=== PATIENT | male | born 1975 | race Caucasian/White ===

== ENCOUNTER 2019-12-26 00:42 | Outpatient (CLI) | payer BC, SELFPAY ==
[2019-12-26 21:18] LABS: SARS-CoV-2 RNA PCR Negative
== END 2019-12-26 00:43 | disposition home or self-care (01) ==
LOC: ANHCOVIDDT 00:42
PROVIDERS: PCP Family Medicine; Visit Provider Internal Medicine Gastroenterology
DX: Z01.812 Encounter for preprocedural laboratory examination (principal); Z20.828 Contact with and (suspected) exposure to other viral communicable diseases
CPT/HCPCS: 87635; C9803; U0003

== ENCOUNTER 2019-12-30 02:07 | Day surgery (SDC) | payer BC, SELFPAY ==
[2019-12-24 15:52] VITALS: BMI 34.8
[2019-12-30 08:39] VITALS: BP 142/107; PULSE 102; RESP 16; TEMP 36.6; O2SAT 100; BMI 34.0
--- NOTE | 2019-12-30 08:44 | WPDANESEPPF ---
Anes - Initial Pre Proc Eval Procedure: Operation Date: 12/30/19 10:00 Proposed Procedures p Esophagogastroduodenoscopy - Reggie Tolentino MD Date/Time: 12/30/19 08:44 Surgeon: Reggie Tolentino MD Pre Op Diagnosis: GERD Patient Data Age: 44 Gender: M Height: 1.75 m Weight: 104.7 kg Last Vital Signs Temp 36.6 C 12/30/19 08:39 Pulse 102 H 12/30/19 08:39 Resp 16 12/30/19 08:39 BP 142/107 H 12/30/19 08:39 Pulse Ox 100 12/30/19 08:39 Allergies Allergy/AdvReac Type Severity Reaction Status Date / Time No Known Allergies Allergy Verified 12/30/19 08:38 Home Medications Medication Instructions Recorded Confirmed Type multivitamin 1 tablet PO DAILY 11/12/19 12/24/19 History teriflunomide 14 mg tablet 14 mg PO DAILY 11/12/19 12/24/19 History cholecalciferol (vitamin D3) 50 100 mcg PO DAILY cap 11/25/19 12/24/19 History mcg (2,000 unit) capsule duloxetine 60 mg capsule,delayed 60 mg PO BID cap 11/25/19 12/24/19 History release Adult Multi plus [place]-3 1 cap PO DAILY 12/24/19 12/24/19 History Patient hx anesthesia problems: none Family hx anesthesia problems: none PMFSH Past Medical History Medical History (Updated 12/30/19 @ 08:45 by Migue Ramirez MD) Depression with anxiety Dyslipidemia Multiple sclerosis Obesity Vitamin D deficiency Surgical History Surgical History H/O arthroscopy of left knee 2017 History of esophagogastroduodenoscopy (EGD) [facility] 2017 or 2018 Family History Family History Mother Breast cancer Father Parkinson's disease Other Carcinoma of stomach Social History Social History Smoking status: Never smoker Alcohol intake: never Substance use: never Substance use type: does not use Spiritual care concerns: No Anes - Eval Final PreProcedure Day of Procedure 12/30/19 08:44 Patient weight: obese Heart: regular rate and rhythm Lungs: clear to auscultation and normal air movement Airway: Mallampati scale class II Neurological: alert and oriented Last oral intake: >/= 8 hours ASA classification: III Emergent: no Anesthetic plan: proceed Anesthesia type and monitoring: general GIVS Informed Consent: The patient's anesthetic plan and its attendant risks and benefits were discussed with the patient/family/POA. Questions were solicited and answers provided to the satisfaction of the patient/family/POA.
[2019-12-30] MEDS: LACTATED RINGERS 1,000 ML 150 ML IV CONT (08:59)
--- NOTE | 2019-12-30 09:54 | PM.HPGS ---
History of Present Illness History of Present Illness Consent: Risks, benefits, and alternatives have been discussed and questions answered. Patient agrees to proceed with procedure. Chief complaint: GERD Narrative: Nahid Stringer is a 44 year old male h/o MS, here because clearing throat and mild chest discomfort, empiric treatment with antacids and ppi did not work. Review of Systems Constitutional: Constitutional: Denies headache(s) and Denies weakness Eyes: Eyes: Denies blurry vision ENT: Reports Normal hearing present, Denies headache(s) and Denies neck pain Cardiovascular: Cardiovascular: Denies chest pain and Denies dyspnea Respiratory: Respiratory: Denies dyspnea Gastrointestinal: Gastrointestinal: Reports no additional gastrointestinal complaints Genitourinary: Genitourinary: Denies dysuria Musculoskeletal: Musculoskeletal: Denies neck pain Integumentary/Breasts: Skin/Breast: Denies dry skin Neurologic: Reports Normal hearing present, Denies headache(s) and Denies weakness Psychiatric: Psychiatric: Denies anxiety Endocrine: Endocrine: Denies change in body appearance Hematologic/Lymphatic: Hematologic/Lymphatic: Denies easy bleeding Allergic/Immunologic: Allergic/Immunologic: Denies urticaria PMFSH Past Medical History Medical History (Updated 12/30/19 @ 09:55 by Reggie Tolentino MD) Chronic throat clearing Depression with anxiety Dyslipidemia Multiple sclerosis Obesity Vitamin D deficiency Surgical History Surgical History H/O arthroscopy of left knee 2017 History of esophagogastroduodenoscopy (EGD) [facility] 2017 or 2018 Family History Family History Mother Breast cancer Father Parkinson's disease Other Carcinoma of stomach Social History Social History Smoking status: Never smoker Alcohol intake: never Substance use: never Substance use type: does not use Spiritual care concerns: No Meds Home Medications and Allergies Home Medications Medication Instructions Recorded Confirmed Type multivitamin 1 tablet PO DAILY 11/12/19 12/24/19 History teriflunomide 14 mg tablet 14 mg PO DAILY 11/12/19 12/24/19 History cholecalciferol (vitamin D3) 50 100 mcg PO DAILY cap 11/25/19 12/24/19 History mcg (2,000 unit) capsule duloxetine 60 mg capsule,delayed 60 mg PO BID cap 11/25/19 12/24/19 History release Adult Multi plus [place]-3 1 cap PO DAILY 12/24/19 12/24/19 History Allergies Allergy/AdvReac Type Severity Reaction Status Date / Time No Known Allergies Allergy Verified 12/30/19 08:38 Vital Signs Vital Signs - 24 hr 12/30/19 08:39 Temperature 97.9 F Pulse Rate 102 H Respiratory Rate 16 Blood Pressure 142/107 H Pulse Oximetry 100 Exam Const: General: comfortable and no acute distress HENMT: General nose exam: Normal nares present Eyes: General: appearance normal, both eyes and all related structures Neck: Neck: no JVD Resp: Auscultation: clear to auscultation bilaterally Cardio: Rate: regular rate Rhythm: regular rhythm GI: Inspection: non-distended GI Palp: Yes Soft to palpation Skin: General skin exam: normal color Neuro: General: gait normal Speech: normal speech Extrem: General: normal to inspection Psych: Mental Status: mental status grossly normal Assessment and Plan Assessment and plan (1) Chronic throat clearing: Code(s): R68.89 - Other general symptoms and signs Status: Acute Assessment and Plan: egd with bx, if normal then will need to see ent
[2019-12-30 10:13] VITALS: BP 119/79; PULSE 82; RESP 16; O2SAT 96
[2019-12-30 10:23] VITALS: BP 137/83; PULSE 85; RESP 16; O2SAT 96
[2019-12-30 10:33] VITALS: BP 140/57; PULSE 75; RESP 16; O2SAT 97
== END 2019-12-30 10:51 | disposition home or self-care (01) ==
PROVIDERS: PCP Family Medicine; Visit Provider Internal Medicine Gastroenterology
PROC: 0DJ08ZZ Inspection of Upper Intestinal Tract, Via Natural or Artificial Opening Endoscopic (ICD-10-PCS; CPT 43235; principal; 2019-12-30 10:00)
DX: K21.00 Gastro-esophageal reflux disease with esophagitis, without bleeding (principal); G35 Multiple sclerosis; E78.5 Hyperlipidemia, unspecified; E55.9 Vitamin D deficiency, unspecified; F41.8 Other specified anxiety disorders; E66.9 Obesity, unspecified; Z68.34 Body mass index [BMI] 34.0-34.9, adult
CPT/HCPCS: 43239; 88305; J2704; J7120

== ENCOUNTER 2020-03-24 16:05 | Outpatient (CLI) | payer BC, SELFPAY ==
--- NOTE | ~2020-03-24 | CT_ITS ---
EXAMINATION: CT sinus wo con DATE: 03/24/2020 16:24 INDICATION: Chronic sinusitis TECHNIQUE: Computed tomography (CT) of the paranasal sinuses was performed without intravenous contra st. The dose-length product was 321.89 mGy-cm. Iterative reconstruction technique was employed. COMPARISON: None FINDINGS: Mild mucosal thickening of the ethmoid, maxillary and left sphenoid sinuses. No air-fluid l evels. No mucoperiosteal reaction. Leftward nasal septal deviation. Ostiomeatal units are patent. Rig ht aline bullosa. Mastoids are pneumatized. IMPRESSION: 1. Mild sinusitis. Reviewed, dictated and finalized at location B. S CONSULTANT IMPRESSION: 1. Mild sinusitis.
== END 2020-03-24 16:06 | disposition home or self-care (01) ==
PROVIDERS: PCP Family Medicine; Visit Provider Otolaryngology
DX: J32.9 Chronic sinusitis, unspecified (principal); J33.9 Nasal polyp, unspecified
CPT/HCPCS: 70486

== ENCOUNTER 2022-02-14 09:06 | Outpatient (CLI) | payer BC, SELFPAY ==
--- NOTE | 2022-02-14 09:32 | EST_ITS ---
Patient Info Name: Nahid Stringer Age: 46 years : 1975 Gender: Male Ht: 69 in Wt: 230 lbs BSA: 2.29 m2 HR: 79 bpm BP: 129 / 86 mmHg Heart Rhythm: Sinus Rhythm Exam Date: 02/14/2022 9:47 AM Exam Location: [facility] Stress Patient Status: Outpatient Admit Date: 02/14/2022 Staff Ordering Physician: Meena Robins NP Attending Provider: Meena Robins NP Exercise Technologist: Machelle Faria CT Exercise Physician: Vin Lopez DO Exam Type: CA stress test treadmill Study Info Indications R00.2 - Palpitations A treadmill exercise stress test was performed. Summary 1. 1. Negative [place] exercise stress test for ischemic ST changes by ECG criteria. 2. 2. Reduced functional capacity, achieving 8.9 METs of workload. 3. 3. Appropriate HR response to exercise. 4. 4. Appropriate HR recovery at 1 minute post exercise. 5. 5. No imaging with stress testing. 6. 6. Patient informed of the above results. Protocol: [place] Stress ECG Details Stage: REST Duration (min): 1 min : 8 sec Speed (mph): 0.0 Grade (%): 0 HR (bpm): 82 SBP (mmHg): 129 DBP (mmHg): 86 METS: --- Stage: REST Duration (min): 14 min : 6 sec Speed (mph): 0.0 Grade (%): 0 HR (bpm): 84 SBP (mmHg): 129 DBP (mmHg): 86 METS: --- Stage: STAGE 1 Duration (min): 1 min : 0 sec Speed (mph): 1.7 Grade (%): 10 HR (bpm): 105 SBP (mmHg): 129 DBP (mmHg): 86 METS: --- Stage: STAGE 1 Duration (min): 2 min : 0 sec Speed (mph): 1.7 Grade (%): 10 HR (bpm): 125 SBP (mmHg): 129 DBP (mmHg): 86 METS: --- Stage: STAGE 1 Duration (min): 3 min : 0 sec Speed (mph): 1.7 Grade (%): 10 HR (bpm): 129 SBP (mmHg): 144 DBP (mmHg): 78 METS: --- Stage: STAGE 2 Duration (min): 1 min : 0 sec Speed (mph): 2.5 Grade (%): 12 HR (bpm): 138 SBP (mmHg): 144 DBP (mmHg): 78 METS: --- Stage: STAGE 2 Duration (min): 2 min : 0 sec Speed (mph): 2.5 Grade (%): 12 HR (bpm): 148 SBP (mmHg): 198 DBP (mmHg): 73 METS: --- Stage: STAGE 2 Duration (min): 3 min : 0 sec Speed (mph): 2.5 Grade (%): 12 HR (bpm): 152 SBP (mmHg): 198 DBP (mmHg): 73 METS: --- Stage: STAGE 3 Duration (min): 1 min : 0 sec Speed (mph): 3.4 Grade (%): 14 HR (bpm): 164 SBP (mmHg): 189 DBP (mmHg): 72 METS: --- Stage: STAGE 3 Duration (min): 1 min : 0 sec Speed (mph): 3.4 Grade (%): 14 HR (bpm): 164 SBP (mmHg): 189 DBP (mmHg): 72 METS: --- Stage: RECOVERY Duration (min): 1 min : 0 sec Speed (mph): 0.0 Grade (%): 0 HR (bpm): 150 SBP (mmHg): 189 DBP (mmHg): 72 METS: --- Stage: RECOVERY Duration (min): 1 min : 59 sec Speed (mph): 0.0 Grade (%): 0 HR (bpm): 126 SBP (mmHg): 189 DBP (mmHg): 72 METS: --- Stage
== END 2022-02-14 09:07 | disposition home or self-care (01) ==
PROVIDERS: PCP Nurse Practitioner; Visit Provider Nurse Practitioner
DX: R00.2 Palpitations (principal)
CPT/HCPCS: 93017